=== PATIENT | female | born 1970 | race Caucasian/White ===

== ENCOUNTER 2023-06-24 21:24 | Emergency (ER) | payer MEDICARE, MEDICAID, SELFPAY ==
[2023-06-24 21:26] VITALS: BP 122/91; PULSE 108; RESP 18; TEMP 36.6; O2SAT 97; BMI 27.3
--- NOTE | 2023-06-24 21:57 | CTR_ITS ---
PROCEDURE INFORMATION: Exam: CTA Chest With Contrast Exam date and time: 06/24/2023 10:19 PM Age: 52 years old Clinical indication: Bloating; Abdominal pain; Generalized; Cough and shortness of breath; Other: N/a; Prior surgery; Surgery date: 6+ months; Surgery type: Tubal ligation; Patient HX: Cough with SOB and hypoxia. Abd pain with distention. ; Additional info: Tachycardia and shortness of breath/abd pain TECHNIQUE: Imaging protocol: Computed tomographic angiography of the chest with contrast. Exam focused on the arteries. 3D rendering (Not supervised by radiologist): MIP and/or 3D reconstructed images were created by the technologist. Radiation optimization: All CT scans at this facility use at least one of these dose optimization techniques: automated exposure control; mA and/or kV adjustment per patient size (includes targeted exams where dose is matched to clinical indication); or iterative reconstruction. Contrast material: OMNI 350; Contrast volume: 100 ml; Contrast route: INTRAVENOUS (IV); REPORTING DATA: Count of CT and Cardiac NM exams in prior 12 months: This patient has received 0 known CTs and 0 known cardiac nuclear medicine studies in the 12 months prior to the current study. COMPARISON: No relevant prior studies available. RADIATION DOSE METRICS: Total DLP (mGy-cm): 1046.27 FINDINGS: Pulmonary arteries: Normal. No pulmonary emboli. Aorta: There are calcifications of the aortic root. There are atherosclerotic calcifications of the coronary arteries. There are atherosclerotic calcifications of the aortic arch and the origin of the arch vessels. There are atherosclerotic calcifications of the descending thoracic aorta. Lungs: Diffuse emphysema throughout both lungs. Dependent opacities in the lower lobes and lingula, likely atelectasis. There is a 4 mm nodule in the right lower lobe, (series 4, image 40). Another 3-4 mm nodule in the right middle lobe, (series 4, image 45). 5 mm nodule in the left lower lobe, (series 4, image 45). A larger nodular opacity in the lingula measuring approximally 1.3 by 1.0 cm, (series 7, image 352). No consolidation. Pleural spaces: Unremarkable. No pneumothorax. No pleural effusion. Heart: There is a 4.4 x 3.6 x 5.2 cm fat density lesion adjacent to the right anterior aspect of the left atrium, and posterior and lateral to the right atrium, compatible with epicardial lipoma. The mass, mildly compresses the right anterolateral aspect of the left atrium. No cardiomegaly. No pericardial effusion. Lymph nodes: Small and borderline prominent mediastinal lymph nodes are nonspecific. For reference, there is a 1.2 cm right hilar lymph node, (series 7, image 227). Bones/joints: Mild degenerative changes of the thoracic spine. Old, healing right lateral 6th rib fracture with callus formation. No acute fracture. Soft tissues: Unremarkable. COMMENTS: In the absence of a history or active diagnosis of lung cancer, it is recommended that this patient with emphysema be evaluated for enrollment in a low dose CT lung cancer screening program. PROCEDURE INFORMATION: Exam: CT Abdomen And Pelvis With Contrast Exam date and time: 06/24/2023 10:19 PM Age: 52 years old Clinical indication: Bloating; Abdominal pain; Generalized; Cough and shortness of breath; Other: N/a; Prior surgery; Surgery date: 6+ months; Surgery type: Tubal ligation; Patient HX: Cough with SOB and hypoxia. Abd pain with distention. ; Additional info: Tachycardia and shortness of breath/abd pain TECHNIQUE: Imaging protocol: Computed tomography of the abdomen and pelvis with contrast. Radiation optimization: All CT scans at this facility use at least one of these dose optimization techniques: automated exposure control; mA and/or kV adjustment per patient size (includes targeted exams where dose is matched to clinical indication); or iterative reconstruction. Contrast material: OMNI 350; Contrast volume: 100 ml; Contrast route: INTRAVENOUS (IV); REPORTING DATA: Count of CT and Cardiac NM exams in prior 12 months: This patient has received 0 known CTs and 0 known cardiac nuclear medicine studies in the 12 months prior to the current study. COMPARISON: No relevant prior studies available. RADIATION DOSE METRICS: Total DLP (mGy-cm): 1046.27 FINDINGS: Liver: Fatty steatosis is noted. Granulomatous calcifications are noted in the liver. No mass. Gallbladder and bile ducts: Normal. No calcified stones. No ductal dilation. Pancreas: Normal. No ductal dilation. Spleen: Granulomatous calcifications are seen in the spleen. No splenomegaly. Adrenal glands: Normal. No mass. Kidneys and ureters: Normal. No hydronephrosis. Stomach and bowel: Mild wall thickening of the duodenum and the proximal jejunal loops. No obstruction. No mucosal thickening. Appendix: No evidence of appendicitis. Intraperitoneal space: Unremarkable. No free air. No significant fluid collection. Vasculature: There are atherosclerotic calcifications of the abdominal aorta and its branches. There are atherosclerotic calcifications of the abdominal aorta and its branches. Lymph nodes: Unremarkable. No enlarged lymph nodes. Urinary bladder: Unremarkable as visualized. Reproductive: Unremarkable as visualized. Bones/joints: Mild degenerative changes of the SI joints. Soft tissues: Unremarkable. CT/CT angio chest w abd pel w con IMPRESSION: 1. 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 2. Coronary atherosclerosis. 3. Vascular atherosclerosis. 4. Thoracic lymphadenopathy. 5. Multiple pulmonary nodules. Follow-up CT of the chest within 3 months is recommended according to Fleischner criteria. 6. Old, healing right lateral 6th rib fracture with callus formation IMPRESSION: 1. Mild fatty steatosis of the liver. 2. Granulomatous calcifications of the liver and spleen. 3. Atherosclerotic calcifications of the abdominal aorta and its branches. 4. Mild wall thickening of the duodenum and the proximal jejunal loops. Findings are nonspecific however can be seen with duodenojejunitis, in the appropriate clinical setting. 5. Otherwise, no evidence of acute findings in the abdominal pelvis.
--- NOTE | 2023-06-24 21:58 | ECG_ITS ---
[facility] Test Date: 2023-06-24 Pat Name: Mary Jo Martinez Department: Room: Gender: Female [employer] Technician: : 1970 Requested By: Kirk Cruz Order Number: [id number] Bea MD: Kemal Gusman M.D. Measurements Intervals Onyx Rate: 106 P: 88 IN: 148 QRS: 63 QRSD: 88 T: 2 QT: 348 QTc: 463 Interpretive Statements SINUS TACHYCARDIA POSSIBLE LEFT ATRIAL ENLARGEMENT [-0.1mV P-WAVE IN V1/V2] NONSPECIFIC ST & T-WAVE ABNORMALITY ABNORMAL RHYTHM ECG No previous ECG available for comparison Electronically Signed On 06-25-2023 11:29:36 CDT by Kemal Gusman M.D. [id number]
--- NOTE | 2023-06-24 22:01 | W.ED.SOB ---
HPI - SOB/Dyspnea General: Chief Complaint: Shortness of Breath/Dyspnea Stated Complaint: ABD PAIN Time Seen by Provider: 06/24/23 21:28 History of Present Illness: HPI Narrative: Patient is a 52-year-old female that presents to the emergency department with complaints of chest tightness, shortness of breath and abdominal pain. Patient has a long convoluted story. She states she has had worsening shortness of breath for 2 years. She has undergone CT chest imaging in the last 6 months which shows concern for multiple very large pulmonary nodules. It is unclear if patient has followed up this. She expresses lots of frustration with her providers and is transitioning to an new provider Patient's complaint right now?chest tightness, shortness of breath, abdominal pain with distention She has a productive cough with purulent sputum Unsure if she has been running fevers She has a history of COPD/emphysema, cardiovascular disease. She is a poor historian. Associated symptoms: Reports abdominal pain, chest congestion, chest pain, nausea, orthopnea and palpitations; Deny dizziness, extremity pain, fever(s), polydipsia, polyuria or vomiting Review of Systems General: Reports: 10 or more systems reviewed and unremarkable except in HPI and below Const: Reports: change in weight, fatigue and malaise; Denies: fever(s), chills or change in appetite Eyes: Denies: change in vision, eye discomfort, eye discharge or eye redness ENMT: Reports: throat pain, hoarseness, nasal discharge, nasal congestion and post nasal drip; Denies: enlarged tonsils, odynophagia, ear or mastoid pain, ear discharge, change in hearing, tinnitus or sinus pain Card: Reports: chest pain, palpitations, dyspnea on exertion and orthopnea; Denies: irregular heart rhythm, edema or leg pain with exertion Resp: Reports: dyspnea, productive cough, change in phlegm color and chest congestion; Denies: non-productive cough, wheezing or stridor GI: Reports: abdominal pain, nausea, diarrhea, constipation, bloating and change in bowel habits; Denies: vomiting, dysphagia, GI cramping or hematochezia : Denies: flank pain, difficulty voiding, dysuria, urinary frequency, urinary urgency, urinary hesitancy, oliguria or hematuria Musc: Denies: neck pain, back pain, extremity pain, joint pain, joint swelling, joint redness, joint warmth or muscle weakness Skin/Breast: Denies: rash, pruritus, erythema, photosensitivity or new lesions Neuro: Denies: headache(s), numbness in extremities, weakness in extremities, sensory changes, lack of coordination, difficulty walking, frequent falls, dizziness, confusion, Slurred speech present, difficulty communicating thoughts, seizure-like activity or involuntary movements Endo: Denies: polyuria, polydipsia or tired all the time Last/Lymph: Denies: easy bruising or easy bleeding PFSH ED PFSH: Medical History History of benign cardiac tumor History of chronic obstructive pulmonary disease Social History Smoking and tobacco status: current every day smoker Physical Exam Const: COMMON NORMALS: no acute distress, patient oriented x3 and alert GENERAL APPEARANCE: cooperative ORIENTATION/CONSCIOUSNESS: Yes awake, Yes oriented to person, Yes oriented to place and Yes oriented to time HENMT: COMMON NORMALS: normocephalic and atraumatic HEAD & SCALP: normocephalic and atraumatic FACE & SINUS: normal facial exam MOUTH: Normal oral and palatal mucosa present THROAT: posterior oropharynx normal Eye: COMMON NORMALS: Equal, round and reactive pupils present, EOMs intact bilaterally, conjunctivae normal and no scleral icterus GENERAL EYE: appearance normal, both eyes and all related structures ALIGNMENT: Yes alignment normal PERIORBITAL: periorbital findings normal CONJUNCTIVA: Yes conjunctivae normal PUPIL: Yes Equal, round and reactive pupils present Neck/C-Spine: COMMON NORMALS: full ROM GENERAL: Yes normal visual inspection Lymph: LYMPHATIC: no lymphadenopathy noted Chest: COMMONS NORMALS: normal inspection of the chest Breast/axilla inspection: Yes no chest deformity, asymmetry, normal contours, no nodules, masses, tenderness Resp: COMMON NORMALS: normal respiratory effort, No retractions, No use of accessory muscles and clear to auscultation bilaterally EFFORT & INSPECTION: Yes able to speak in complete sentences and Yes symmetric chest movement AUSCULTATION: clear to auscultation bilaterally Cardio: COMMON NORMALS: regular rate, regular rhythm and Peripheral pulses 2+ throughout RATE: regular rate RHYTHM: regular rhythm PERIPHERAL PULSES: Peripheral pulses 2+ throughout GI: COMMON NORMALS: Normal to inspection, nondistended, normoactive bowel sounds present, Soft to palpation, non-tender and No hepatosplenomegaly present INSPECTION: Yes normal to inspection AUSCULTATION: Yes normoactive bowel sounds PALPATION: Yes Soft to palpation and Yes No hepatosplenomegaly present RECTAL EXAM: deferred Extremity: COMMON NORMALS: normal to inspection GENERAL: Yes normal exam except as noted Neuro: COMMON NORMALS: patient oriented x3 SENSORIUM/ORIENTATION: Yes alert, Yes oriented to person, Yes oriented to place and Yes oriented to time CRANIAL NERVES: Yes CN normal except as noted Psych: COMMON NORMALS: mental status grossly normal, Normal thought process present, cooperative, activity/motor behavior normal, denies homicidal ideation and denies suicidal ideation THOUGHT PROCESS: Normal thought process present Skin: COMMON NORMALS: no rashes or lesions noted, no wounds and turgor normal GENERAL SKIN EXAM: no rashes or lesions noted and turgor normal Course Vital Signs: Vital signs: Vital Signs Temperature 98 F 06/24/23 21:26 Pulse Rate 108 H 06/24/23 21:26 Respiratory Rate 18 06/24/23 21:26 Blood Pressure 122/91 06/24/23 21:26 Pulse Oximetry 97 06/24/23 21:26 MDM - SOB/Dyspnea Medical Decision Making Patient was evaluated in the emergency department for multiple complaints today. He underwent multiple diagnostics that included CT chest abdomen pelvis with contrast EKG Troponin series D-dimer CBC, CMP lactic acid Urinalysis, urine drug screen The differentials for this lady were numerous due to her numerous complaints. Differential diagnoses included AMI, heart disease, unstable angina, PE, abdominal distention, acute abdomen, peritonitis, redness Laboratory studies reveal mild leukocytosis with atelectasis noted on the CT of the chest. She has evidence of ENT?sinus infection. Leukocytosis could be from a COPD exacerbation brought on by a sinus infection Remainder of her labs are largely remarkable. The CT of her chest abdomen pelvis with contrast did reveal widespread coronary vascular atherosclerosis with thoracic lymphadenopathy and multiple pulmonary nodules. The abdomen revealed a fatty liver, calcifications of the liver and spleen, atherosclerosis calcification of the abdominal aorta and its branches. There was mild wall thickening of the duodenum and the proximal jejunal loops. She probably needs to see a smog technician. Delayed the patient has colonoscopy scheduled next week. Patient is good to be treated with Augmentin for sinus affection and COPD exacerbation Also going to give her steroids for COPD exacerbation. Patient is to return to an emergency department for new, concerning, worsening symptoms Lab Data 06/24/23 22:14 06/24/23 22:14 Labs/Radiology: Radiology Impressions Chest/Abdomen/Pelvis CT 06/24/23 21:57 IMPRESSION: 1. 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 2. Coronary atherosclerosis. 3. Vascular atherosclerosis. 4. Thoracic lymphadenopathy. 5. Multiple pulmonary nodules. Follow-up CT of the chest within 3 months is recommended according to Fleischner criteria. 6. Old, healing right lateral 6th rib fracture with callus formation IMPRESSION: 1. Mild fatty steatosis of the liver. 2. Granulomatous calcifications of the liver and spleen. 3. Atherosclerotic calcifications of the abdominal aorta and its branches. 4. Mild wall thickening of the duodenum and the proximal jejunal loops. Findings are nonspecific however can be seen with duodenojejunitis, in the appropriate clinical setting. 5. Otherwise, no evidence of acute findings in the abdominal pelvis. Laboratory Results WBC 11.5 10^3/uL (4.0-10.0) H 06/24/23 22:14 RBC 5.40 10^6/uL (4.1-5.3) H 06/24/23 22:14 Hgb 15.7 g/dL (11.5-15.3) H 06/24/23 22:14 Hct 47.5 % (37.0-47.0) H 06/24/23 22:14 MCV 88.0 fl (81-99) 06/24/23 22:14 MCH 29.1 pg (28.0-34.0) 06/24/23 22:14 MCHC 33.1 g/dL (30.0-36.0) 06/24/23 22:14 RDW 13.7 % (12.1-15.1) 06/24/23 22:14 Plt Count 357 10^3/cmm (130-400) 06/24/23 22:14 MPV 9.9 fL (7.4-10.4) 06/24/23 22:14 Neut % (Auto) 61.3 % 06/24/23 22:14 Lymph % (Auto) 31.0 % 06/24/23 22:14 [place] % (Auto) 6.4 % 06/24/23 22:14 Eos % (Auto) 0.3 % 06/24/23 22:14 Baso % (Auto) 0.7 % 06/24/23 22:14 Neut # (Auto) 7.03 10^3/uL (1.8-7.7) 06/24/23 22:14 Lymph # (Auto) 3.6 10^3/uL (0.8-4.8) 06/24/23 22:14 [place] # (Auto) 0.7 10^3/uL (0.2-0.9) 06/24/23 22:14 Eos # (Auto) 0.0 10^3/uL (0.0-0.8) 06/24/23 22:14 Baso # (Auto) 0.1 10^3/uL (0.0-0.1) 06/24/23 22:14 Nucleated RBC % (auto) 0 % 06/24/23 22:14 Nucleated RBCs # 0.0 /100WBC 06/24/23 22:14 D-Dimer 0.44 ug/mIFEU (0-0.59) 06/24/23 22:14 Sodium 139 mmol/L (136-145) 06/24/23 22:14 Potassium 3.8 mmol/L (3.5-5.1) 06/24/23 22:14 Chloride 100 mmol/L (98-107) 06/24/23 22:14 Carbon Dioxide 25 mmol/L (22-29) 06/24/23 22:14 Anion Gap 17.8 (5-19) 06/24/23 22:14 BUN 11 mg/dL (6-20) 06/24/23 22:14 Creatinine 0.8 mg/dL (0.5-0.9) 06/24/23 22:14 GFR Calculation 75.0 mL/min (90-130) L 06/24/23 22:14 Glucose 115 mg/dL (65-115) 06/24/23 22:14 Calculated Osmolality 288 mOsm/kg (285-295) 06/24/23 22:14 Lactic Acid 1.3 mmol/L (0.5-2.2) 06/24/23 22:14 Calcium 9.3 mg/dL (8.5-10.5) 06/24/23 22:14 Total Bilirubin 0.3 mg/dL (0.15-1.2) 06/24/23 22:14 AST 13 U/L (0-32) 06/24/23 22:14 ALT 12 U/L (0-33) 06/24/23 22:14 Alkaline Phosphatase 81 U/L (35-105) 06/24/23 22:14 Troponin T Baseline 6 ng/L (0-10) 06/24/23 22:14 NT-Pro-B Natriuret Pep 84 pg/mL (0-125) 06/24/23 22:14 Total Protein 7.7 g/dL (6.6-8.7) 06/24/23 22:14 Albumin 4.1 g/dL (3.5-5.2) 06/24/23 22:14 Globulin 3.6 g/dL (1.3-4.6) 06/24/23 22:14 Urine Color Straw (Yellow) 06/24/23 23:03 Urine Appearance Clear (CLEAR) 06/24/23 23:03 Urine pH 5 (5-7) 06/24/23 23:03 Ur Specific [place] 1.010 (1.005-1.030) 06/24/23 23:03 Urine Protein Neg (Negative) 06/24/23 23:03 Urine Glucose (UA) Norm (Normal) 06/24/23 23:03 Urine Ketones Negative (Negative) 06/24/23 23:03 Urine Blood Trace (Negative) H 06/24/23 23:03 Urine Nitrate Negative (Negative) 06/24/23 23:03 Urine Bilirubin Neg (Negative) 06/24/23 23:03 Urine Urobilinogen Norm mg/dL (Negative) 06/24/23 23:03 Ur Leukocyte Esterase Negative (Negative) 06/24/23 23:03 Urine RBC 0-4 /hpf (0-2) H 06/24/23 23:03 Urine WBC 0-4 /hpf (0-5) H 06/24/23 23:03 Ur Squamous Epith Cells 0-4 /hpf (0-5) H 06/24/23 23:03 Amorphous Sediment Not Reportable 06/24/23 23:03 Urine Bacteria Trace /hpf (NONE) 06/24/23 23:03 Urine Mucus Trace /hpf 06/24/23 23:03 Urine Opiates Screen Negative ng/mL (Negative) 06/24/23 23:03 Ur Barbiturates Screen Negative ng/mL (Negative) 06/24/23 23:03 Ur Phencyclidine Scrn Negative ng/mL (Negative) 06/24/23 23:03 Ur Amphetamines Screen Negative ng/mL (Negative) 06/24/23 23:03 U Benzodiazepines Scrn Negative ng/mL (Negative) 06/24/23 23:03 Urine Cocaine Screen Negative ng/mL (Negative) 06/24/23 23:03 U Marijuana (THC) Screen Negative ng/mL (Negative) 06/24/23 23:03 Discharge Plan Discharge Patient Disposition: Home Clinical Impression: Acute exacerbation of chronic obstructive airways disease, Chronic infection of sinus Condition: Stable Prescriptions: New amoxicillin-pot clavulanate 875-125 mg tablet 1 tab PO BID 7 Days Qty: 14 0RF fluticasone propionate 50 mcg/actuation spray,suspension 1 spray intranasal DAILY PRN (Reason: allergy symptoms and nasal congestion) Qty: 16 0RF Rx Instructions: administer into each nostril dextromethorphan-guaifenesin [Mucinex DM] 60-1,200 mg tablet extended release 12 hr 1 tab PO BID PRN (Reason: Chest congestion) 7 Days Qty: 14 0RF Rx Instructions: Drink plenty of water while taking this medication No Action tizanidine 4 mg capsule 4 mg PO BID PRN Discharge Orders: Discharge ED (Routine); Ordered 06/24/23 Ordered By: Kirk Barnes Referrals: Parul Lee COUNTER POCKET TRIMMER [Primary Care Provider] - Discharge Diet: Advance as tolerated Discharge Activity: Resume usual activity Patient Instructions: How to Stop Smoking (ED), COPD (Chronic Obstructive Pulmonary Disease) (ED), Pain Management, Sinusitis - Chronic Activity Restrictions/Additional Instructions: Please take medications as prescribed Please follow-up with your primary doctor this week Please keep your appointment for colonoscopy. This will be a good opportunity to discuss the recent findings on the CT Coding Level of Care Code ED Bowling Or Skating Front Desk Clerk for Sam Estrella
[2023-06-24] MEDS: iohexol 350 mg/mL 500 mL Btl (per mL) IV (22:20)
[2023-06-24 22:27] LABS: Basophils # 0.1 10^3/uL (0.0-0.1); Basophils % 0.7 %; Eosinophils % 0.3 %; Hematocrit 47.5 % (37.0-47.0); Hemoglobin 15.7 g/dL (11.5-15.3); Lymphocytes # 3.6 10^3/uL (0.8-4.8); Mean Corpuscular HGB Conc 33.1 g/dL (30.0-36.0); Mean Corpuscular Hemoglobin 29.1 pg (28.0-34.0); Mean Platelet Volume 9.9 fL (7.4-10.4); Monocytes # 0.7 10^3/uL (0.2-0.9); Monocytes % 6.4 %; Neutrophils # 7.03 10^3/uL (1.8-7.7); Neutrophils % 61.3 %; Nucleated Red Blood Cells % 0 %; Platelet Count 357 10^3/cmm (130-400); Red Cell Distribution Width 13.7 % (12.1-15.1); White Blood Count 11.5 10^3/uL (4.0-10.0)
[2023-06-24 22:42] LABS: D Dimer 0.44 ug/mIFEU (0-0.59)
[2023-06-24 22:44] LABS: Lactic Sepsis W/Reflex 1.3 mmol/L (0.5-2.2)
[2023-06-24 22:46] LABS: Troponin(5th) Baseline 6 ng/L (0-10)
[2023-06-24 22:55] LABS: Alanine Aminotransferase 12 U/L (0-33); Albumin Level 4.1 g/dL (3.5-5.2); Alkaline Phosphatase 81 U/L (35-105); Anion Gap 17.8 (5-19); Aspartate Amino Transferase 13 U/L (0-32); Blood Urea Nitrogen 11 mg/dL (6-20); Calcium 9.3 mg/dL (8.5-10.5); Carbon Dioxide 25 mmol/L (22-29); Chloride 100 mmol/L (98-107); Globulin 3.6 g/dL (1.3-4.6); Glucose 115 mg/dL (65-115); NT Pro B Type Natriuretic Pept 84 pg/mL (0-125); Osmolality Calculated 288 mOsm/kg (285-295); Potassium 3.8 mmol/L (3.5-5.1); Sodium 139 mmol/L (136-145); Total Bilirubin 0.3 mg/dL (0.15-1.2); Total Protein 7.7 g/dL (6.6-8.7)
[2023-06-24 23:22] LABS: Amphetamines Screen Urine Negative (Negative); Barbiturates Screen Urine Negative (Negative); Benzodiazepines Screen Urine Negative (Negative); Cocaine Screen Urine Negative (Negative); PCP Screen Urine Negative (Negative); THC Screen Urine Negative (Negative)
[2023-06-24 23:32] LABS: Add Urine Microscopic? YES; Bilirubin Urine Neg (Negative); Blood Urine Trace (Negative); Glucose Urine UA Norm (Normal); Ketones Urine Negative (Negative); Leukocyte Esterase Urine Negative (Negative); Nitrate Urine Negative (Negative); Protein Urine Neg (Negative); Urine Appearance Clear (CLEAR); Urine Color Straw (Yellow); Urobilinogen Urine Norm (Negative); pH Urine 5 (5-7)
[2023-06-24 23:33] LABS: Bacteria Urine TRACE /hpf; Mucus Urine TRACE /hpf; RBC Urine 0-4 /hpf (0-2); Squamous Epithelial Cell Urine 0-4 /hpf (0-5); WBC Urine 0-4 /hpf (0-5)
[2023-06-24 23:34] LABS: Add Urine Culture? No
[2023-06-24 23:39] LABS: Opiate Screen Urine Negative (Negative)
[2023-06-24] MEDS: amoxicillin-clav 875-125 mg Tablet 1 TAB PO (23:59)
[2023-06-25] MEDS: methylPREDNISolone sod succ 125 MG in water for injection-sterile 2 ML 24 MG IVP
[2023-06-25 00:18] VITALS: BP 128/76; O2SAT 98
== END 2023-06-25 00:19 | disposition home or self-care (01) ==
PROVIDERS: Emergency Provider Nurse Practitioner; PCP Nurse Practitioner Family
DX: J44.9 Chronic obstructive pulmonary disease, unspecified (principal); J32.9 Chronic sinusitis, unspecified; D72.829 Elevated white blood cell count, unspecified; J98.11 Atelectasis; I25.10 Atherosclerotic heart disease of native coronary artery without angina pectoris; R59.1 Generalized enlarged lymph nodes; R91.8 Other nonspecific abnormal finding of lung field; K76.0 Fatty (change of) liver, not elsewhere classified; D73.89 Other diseases of spleen
CPT/HCPCS: 71275; 74177; 80053; 80306; 81001; 83605; 83880; 84484; 85025; 85378; 93005; 96374; 99285; J2930; Q9967

== ENCOUNTER 2023-10-28 07:26 | Emergency (ER) | payer MEDICARE, MEDICAID, SELFPAY ==
[2023-10-28 07:28] VITALS: BP 150/101; PULSE 88; RESP 12; TEMP 36.6; O2SAT 94; BMI 27.3
[2023-10-28 07:35] VITALS: BP 150/101; O2SAT 93
--- NOTE | 2023-10-28 07:35 | W.ED.NECK ---
HPI - Neck Pain/Injury General: Chief Complaint: Neck Pain/Injury Stated Complaint: NECK PAIN Time Seen by Provider: 10/28/23 07:29 Source: EMS Mode of arrival: EMS Limitations: no limitations History of Present Illness: 53-year-old female states she has been having neck pain over the last 4 to 5 days states the burning pain in her neck and shoulders. He states that she has a bone scan set up next week with her PCP in [facility]. States the pain is burning in nature rates it a 6 out of 10 she denies any weakness denies any severe headache Associated symptoms: Denies headache(s) or nausea Review of Systems Const: Denies: fever(s), chills, body aches or change in appetite Eyes: Denies: blurry vision or eye discomfort ENMT: Denies: throat pain or dental pain Card: Denies: chest pain Resp: Denies: dyspnea GI: Denies: abdominal pain, nausea, vomiting or diarrhea Musc: Reports: neck pain; Denies: back pain Skin/Breast: Denies: rash Neuro: Denies: headache(s) PFSH ED PFSH: Medical History History of benign cardiac tumor History of chronic obstructive pulmonary disease Social History Smoking and tobacco/nicotine status: current every day tobacco/nicotine user Physical Exam Const: COMMON NORMALS: no acute distress, patient oriented x3 and healthy appearing HENMT: COMMON NORMALS: normocephalic and atraumatic HEAD & SCALP: normocephalic and atraumatic Eye: COMMON NORMALS: Equal, round and reactive pupils present and EOMs intact bilaterally PUPIL: Yes Equal, round and reactive pupils present Neck/C-Spine: OTHER: Tenderness to bilateral neck no midline tenderness Chest: COMMONS NORMALS: normal inspection of the chest and normal palpation of entire chest wall Resp: COMMON NORMALS: normal respiratory effort, No retractions, No use of accessory muscles and clear to auscultation bilaterally AUSCULTATION: clear to auscultation bilaterally Cardio: COMMON NORMALS: regular rate, regular rhythm and No murmurs present (Cardio) RATE: regular rate RHYTHM: regular rhythm Extremity: COMMON NORMALS: normal to inspection and full ROM Neuro: COMMON NORMALS: patient oriented x3, moves all extremities and no focal motor deficits Psych: COMMON NORMALS: mental status grossly normal, Normal thought process present and cooperative THOUGHT PROCESS: Normal thought process present Skin: COMMON NORMALS: no rashes or lesions noted and no wounds GENERAL SKIN EXAM: no rashes or lesions noted Course Vital Signs: Vital signs: Vital Signs Temperature 97.8 F 10/28/23 07:28 Pulse Rate 88 10/28/23 07:28 Respiratory Rate 12 10/28/23 07:28 Blood Pressure 150/101 10/28/23 07:28 Pulse Oximetry 94 10/28/23 07:28 Oxygen Delivery Me thod Room Air 10/28/23 07:28 MDM - Neck Pain/Injury Medical Decision Making Patient presents here with neck pain likely muscular in nature. She has a bone scan scheduled next week with Bubba she is well-appearing here no sign of cord impingement or meningitis we will prescribe her pain meds she is to follow-up with PCP as scheduled and return if worsening. Medical Records I reviewed the patient's medical records. No radiology studies performed this visit Discharge Plan Discharge Patient Disposition: Home Clinical Impression: Neck pain Condition: Stable Prescriptions: New hydrocodone-acetaminophen 5-325 mg tablet 1 tab PO Q6H PRN (Reason: pain) Qty: 14 0RF No Action tizanidine 4 mg capsule 4 mg PO BID PRN fluticasone propionate 50 mcg/actuation spray,suspension 1 spray intranasal DAILY PRN (Reason: allergy symptoms and nasal congestion) Qty: 16 0RF Rx Instructions: administer into each nostril Discharge Orders: Discharge ED (Routine); Ordered 10/28/23 Ordered By: Andree Chu Referrals: Parul Lee NP [Primary Care Provider] - 1-3 days Discharge Diet: Advance as tolerated Discharge Activity: Resume usual activity Patient Instructions: Neck Pain (ED), Opioid Safety Coding Level of Care Code ED Restaurant Assistant Manager for Sam Estrella
[2023-10-28 07:54] VITALS: RESP 18; O2SAT 95
[2023-10-28] MEDS: morphine 4 mg/mL SDV 1 mL IM (07:54)
[2023-10-28] MEDS: dexamethasone 10 mg/mL INJ IM (07:54)
== END 2023-10-28 08:48 | disposition home or self-care (01) ==
PROVIDERS: Emergency Provider Emergency Medicine; PCP Nurse Practitioner Family
DX: M54.2 Cervicalgia (principal); J44.9 Chronic obstructive pulmonary disease, unspecified; Z72.0 Tobacco use
CPT/HCPCS: 96372; 99284; J1100; J2270

== ENCOUNTER 2023-11-10 10:42 | Emergency (ER) | payer MEDICARE, MEDICAID, SELFPAY ==
[2023-11-10 10:44] VITALS: BP 131/80; PULSE 113; RESP 18; TEMP 37.1; O2SAT 90; BMI 19.8
[2023-11-10 11:21] LABS: Basophils % 0.2 %; Hematocrit 49.9 % (36-47); Lymphocytes # 1.3 10^3/uL (0.8-4.8); Lymphocytes % 6.7 %; Mean Corpuscular HGB Conc 33.9 g/dL (30-55); Mean Corpuscular Volume 88.6 fl (85-98); Mean Platelet Volume 9.7 fL (7.4-10.4); Monocytes % 5.1 %; Neutrophils # 16.78 10^3/uL (1.8-7.7); Neutrophils % 87.6 %; Nucleated Red Blood Cells % 0 %; Platelet Count 218 10^3/cmm (157-399); Red Blood Count 5.63 10^6/uL (3.85-5.65); Red Cell Distribution Width 14.8 % (12.1-15.1); White Blood Count 19.15 10^3/uL (3.29-11.43)
[2023-11-10 11:33] LABS: INR 0.99 (0.8-1.2)
[2023-11-10 11:40] LABS: Alanine Aminotransferase 17 U/L (0-33); Albumin Level 3.6 g/dL (3.5-5.2); Alkaline Phosphatase 75 U/L (35-105); Anion Gap 16.2 (5-19); Aspartate Amino Transferase 23 U/L (0-32); Blood Urea Nitrogen 15 mg/dL (6-20); Calcium 9.1 mg/dL (8.5-10.5); Carbon Dioxide 24 mmol/L (22-29); Chloride 100 mmol/L (98-107); Globulin 3.3 g/dL (1.3-4.6); Glomerular Filtration Rate 87.2 mL/min (90-130); Glucose 171 mg/dL (65-115); Osmolality Calculated 287 mOsm/kg (285-295); Potassium 4.2 mmol/L (3.5-5.1); Sodium 136 mmol/L (136-145); Total Bilirubin 0.5 mg/dL (0.15-1.2); Total Protein 6.9 g/dL (6.6-8.7)
[2023-11-10] MEDS: sodium chloride 0.9% 1,000 ML 999 ML IV (11:44)
[2023-11-10 11:50] VITALS: BP 126/90; O2SAT 91
[2023-11-10 12:00] VITALS: BP 136/92; PULSE 90; RESP 16; O2SAT 90
--- NOTE | 2023-11-10 12:22 | CTR_ITS ---
PROCEDURE INFORMATION: Exam: CT Abdomen And Pelvis With Contrast Exam date and time: 11/10/2023 12:38 PM Age: 53 years old Clinical indication: Abdominal pain; Generalized; Prior surgery; Surgery date: 6+ months; Surgery type: Tubal; Additional info: Abd pain, lower gi bleed TECHNIQUE: Imaging protocol: Computed tomography of the abdomen and pelvis with contrast. Radiation optimization: All CT scans at this facility use at least one of these dose optimization techniques: automated exposure control; mA and/or kV adjustment per patient size (includes targeted exams where dose is matched to clinical indication); or iterative reconstruction. Contrast material: OMNI 350; Contrast volume: 100 ml; Contrast route: INTRAVENOUS (IV); REPORTING DATA: Count of CT and Cardiac NM exams in prior 12 months: This patient has received [address] and 0 known cardiac nuclear medicine studies in the 12 months prior to the current study. COMPARISON: CT angio chest w abd pel w con 06/24/2023 10:19 PM RADIATION DOSE METRICS: Total DLP (mGy-cm): 647.9 FINDINGS: Liver: Normal. No mass. Gallbladder and bile ducts: Normal. No calcified stones. No ductal dilation. Pancreas: Normal. No ductal dilation. Spleen: The spleen demonstrates a few small granulomatous calcifications. Adrenal glands: Normal. No mass. Kidneys and ureters: Normal. No hydronephrosis. Stomach and bowel: See Intraperitoneal space finding. Appendix: The vermiform appendix is normal. Intraperitoneal space: Right anterior subdiaphragmatic colonic interposition is present, a normal variant. Vasculature: Moderate aortic atherosclerotic calcification without aneurysm. The iliac arteries show moderate bilateral atherosclerotic calcifications without evidence of aneurysm. Left pelvic calcified phleboliths. Lymph nodes: No enlarged lymph nodes. Urinary bladder: Unremarkable as visualized. Reproductive: Unremarkable as visualized. Bones/joints: Stable T11 vertebral body, left iliac bone, left femoral head and right femoral neck probable benign bone islands. Soft tissues: A tiny paraumbilical hernia containing only abdominal fat is noted. CT/CT abdomen pelvis w con* [id number] IMPRESSION: 1. No acute abdominal or pelvic abnormality identified. 2. No site or cause of gastrointestinal bleeding identified. 3. Please see the CT chest report of the same date for additional findings.
--- NOTE | 2023-11-10 12:42 | ED_ITS ---
Documented by User: Paulino Howe DO 11/10/23 13:44 HPI - GI Bleed 2 General: Chief complaint: GI Bleed Stated complaint: rectal bleeding Time Seen by Provider: 11/10/23 10:49 History of Present Illness: Patient presents to the ER with complaints of distended abdomen that has been hard for months. She states she had multiple bloody bowel movements this morning and blood in her pull-ups. Patient says she is been worked up for this multiple times and multiple CTs in the past and nobody finds anything ever. Review of Systems 2 General: Reports: 10 or more systems reviewed and unremarkable except in HPI and below PFSH ED 2 PFSH: Medical History History of benign cardiac tumor History of chronic obstructive pulmonary disease Social History Smoking and tobacco/nicotine status: current every day tobacco/nicotine user Physical Exam 2 Const: COMMON NORMALS: no acute distress, average body habitus, patient oriented x3, no limitations, healthy appearing, alert and well nourished HENMT: COMMON NORMALS: normocephalic, atraumatic, hearing grossly normal bilaterally, external ears normal, Normal external nose present, moist oral mucous membranes and oropharynx normal HEAD & SCALP: normocephalic and atraumatic NOSE: Normal external nose present EXTERNAL EAR: Yes external ears normal Neck/C-Spine: COMMON NORMALS: no JVD Chest: COMMONS NORMALS: normal inspection of the chest and normal palpation of entire chest wall Resp: COMMON NORMALS: normal respiratory effort, No retractions, No use of accessory muscles and clear to auscultation bilaterally AUSCULTATION: clear to auscultation bilaterally Cardio: COMMON NORMALS: no JVD, regular rate, regular rhythm, S1 normal heart sound present, S2 normal heart sound present, No gallops present (Cardio), No clicks present (Cardio), No murmurs present (Cardio), No rub (Cardio) and Peripheral pulses 2+ throughout RATE: regular rate RHYTHM: regular rhythm HEART SOUNDS: S1 normal heart sound present and S2 normal heart sound present PERIPHERAL PULSES: Peripheral pulses 2+ throughout GI: COMMON NORMALS: Normal to inspection, nondistended, normoactive bowel sounds present, Soft to palpation, non-tender, No hepatosplenomegaly present and no masses PALPATION: Yes Soft to palpation and Yes No hepatosplenomegaly present Neuro: COMMON NORMALS: patient oriented x3 SENSORIUM/ORIENTATION: Yes alert Course 2 Vital Signs: Vital signs: Vital Signs Temperature 98.8 F 11/10/23 14:07 Pulse Rate 115 H 11/10/23 14:07 Respiratory Rate 14 11/10/23 14:07 Blood Pressure 131/90 11/10/23 14:07 Pulse Oximetry 91 11/10/23 14:07 Oxygen Delivery Me thod Room Air 11/10/23 13:30 Oxygen Flow Rate 1 11/10/23 11:50 MDM - GI Bleed Medical Decision Making Lab work done that revealed an elevated white count of 19.1, UA showed probable urinary tract infection. CT scan of abdomen pelvis with contrast showed no acute abdominal or pelvic abnormality. Patient be placed on ciprofloxacin and discharged home. Patient was given 1 L normal saline in ER. As well as 500 mg Cipro orally. Patient should follow-up with her PCP within the next 7 to 10 days for further evaluation and treatment. Differential Diagnosis Likely Lower gastrointestinal hemorrhage and hematochezia; Unlikely hemorrhoids, infectious diarrhea, esophageal varices, gastritis, Ashley-Bah syndrome, Upper gastrointestinal hemorrhage, melena or anal fissure Lab Data I reviewed the patient's lab results. 11/10/23 11:06 11/10/23 11:06 Radiology Impressions Abdomen/Pelvis CT 11/10/23 12:22 IMPRESSION: 1. No acute abdominal or pelvic abnormality identified. 2. No site or cause of gastrointestinal bleeding identified. 3. Please see the CT chest report of the same date for additional findings. ADDENDUM: 11/11/23 0841 Images reviewed. Thrombus within the superior mesenteric artery. Area of low attenuation within the right kidney inferiorly and peripherally consistent with a renal infarct. These findings were discussed with Dr. Pino at approximately 9:[address] Radha Soto Laboratory Results WBC 19.15 10^3/uL (3.29-11.43) H 11/10/23 11:06 RBC 5.63 10^6/uL (3.85-5.65) 11/10/23 11:06 Hgb 16.90 g/dL (11.27-16.99) 11/10/23 11:06 Hct 49.9 % (36-47) H 11/10/23 11:06 MCV 88.6 fl (85-98) 11/10/23 11:06 MCH 30.0 pg (27-33) 11/10/23 11:06 MCHC 33.9 g/dL (30-55) 11/10/23 11:06 RDW 14.8 % (12.1-15.1) 11/10/23 11:06 Plt Count 218 10^3/cmm (157-399) 11/10/23 11:06 MPV 9.7 fL (7.4-10.4) 11/10/23 11:06 Neut % (Auto) 87.6 % 11/10/23 11:06 Lymph % (Auto) 6.7 % 11/10/23 11:06 Upson % (Auto) 5.1 % 11/10/23 11:06 Eos % (Auto) 0.0 % 11/10/23 11:06 Baso % (Auto) 0.2 % 11/10/23 11:06 Neut # (Auto) 16.78 10^3/uL (1.8-7.7) H 11/10/23 11:06 Lymph # (Auto) 1.3 10^3/uL (0.8-4.8) 11/10/23 11:06 Upson # (Auto) 1.0 10^3/uL (0.2-0.9) H 11/10/23 11:06 Eos # (Auto) 0.0 10^3/uL (0.0-0.8) 11/10/23 11:06 Baso # (Auto) 0.0 10^3/uL (0.0-0.1) 11/10/23 11:06 Nucleated RBC % (auto) 0 % 11/10/23 11:06 Nucleated RBCs # 0.0 /100WBC 11/10/23 11:06 PT 13.40 SECONDS (12.1-14.9) 11/10/23 11:06 INR 0.99 (0.8-1.2) 11/10/23 11:06 Sodium 136 mmol/L (136-145) 11/10/23 11:06 Potassium 4.2 mmol/L (3.5-5.1) 11/10/23 11:06 Chloride 100 mmol/L (98-107) 11/10/23 11:06 Carbon Dioxide 24 mmol/L (22-29) 11/10/23 11:06 Anion Gap 16.2 (5-19) 11/10/23 11:06 BUN 15 mg/dL (6-20) 11/10/23 11:06 Creatinine 0.7 mg/dL (0.5-0.9) 11/10/23 11:06 GFR Calculation 87.2 mL/min (90-130) L 11/10/23 11:06 Glucose 171 mg/dL (65-115) H 11/10/23 11:06 Calculated Osmolality 287 mOsm/kg (285-295) 11/10/23 11:06 Calcium 9.1 mg/dL (8.5-10.5) 11/10/23 11:06 Total Bilirubin 0.5 mg/dL (0.15-1.2) 11/10/23 11:06 AST 23 U/L (0-32) 11/10/23 11:06 ALT 17 U/L (0-33) 11/10/23 11:06 Alkaline Phosphatase 75 U/L (35-105) 11/10/23 11:06 Total Protein 6.9 g/dL (6.6-8.7) 11/10/23 11:06 Albumin 3.6 g/dL (3.5-5.2) 11/10/23 11:06 Globulin 3.3 g/dL (1.3-4.6) 11/10/23 11:06 Urine Color Yellow (Yellow) 11/10/23 13:00 Urine Appearance Hazy (CLEAR) A 11/10/23 13:00 Urine pH 5 (5-7) 11/10/23 13:00 Ur Specific [place] 1.010 (1.005-1.030) 11/10/23 13:00 Urine Protein 1+ (Negative) H 11/10/23 13:00 Urine Glucose (UA) Norm (Normal) 11/10/23 13:00 Urine Ketones Negative (Negative) 11/10/23 13:00 Urine Blood 3+ (Negative) H 11/10/23 13:00 Urine Nitrate Negative (Negative) 11/10/23 13:00 Urine Bilirubin 1+ (Negative) H 11/10/23 13:00 Urine Urobilinogen Norm mg/dL (Negative) 11/10/23 13:00 Ur Leukocyte Esterase 2+ (Negative) H 11/10/23 13:00 Urine RBC 5-10 /hpf (0-2) H 11/10/23 13:00 Urine WBC 25-40 /hpf (0-5) H 11/10/23 13:00 Ur Squamous Epith Cells 10-15 /hpf (0-5) H 11/10/23 13:00 Amorphous Sediment Not Reportable 11/10/23 13:00 Urine Bacteria 2+ /hpf (NONE) H 11/10/23 13:00 Urine Opiates Screen Negative ng/mL (Negative) 11/10/23 13:00 Ur Barbiturates Screen Negative ng/mL (Negative) 11/10/23 13:00 Ur Phencyclidine Scrn Negative ng/mL (Negative) 11/10/23 13:00 Ur Amphetamines Screen Negative ng/mL (Negative) 11/10/23 13:00 U Benzodiazepines Scrn Negative ng/mL (Negative) 11/10/23 13:00 Urine Cocaine Screen Negative ng/mL (Negative) 11/10/23 13:00 U Marijuana (THC) Screen Negative ng/mL (Negative) 11/10/23 13:00 All radiology interpretation(s) finalized by discharge Discharge Plan Discharge Patient Disposition: Home Clinical Impression: Hematochezia Urinary tract infection Qualifiers: Urinary tract infection type: acute cystitis Hematuria presence: with hematuria Qualified Code(s): N30.01 - Acute cystitis with hematuria Condition: Stable Prescriptions: New ciprofloxacin HCl 500 mg tablet 500 mg PO Q12H Qty: 14 0RF No Action tizanidine 4 mg capsule 4 mg PO BID PRN (Reason: Muscle Spasm) buspirone 5 mg tablet 5 mg PO TID doxycycline hyclate 100 mg capsule 100 mg PO BID albuterol sulfate 2.5 mg /3 mL (0.083 %) solution for nebulization 2.5 mg continuous nebulization TID PRN (Reason: Shortness Of Breath Or Wheezing) albuterol sulfate 90 mcg/actuation HFA aerosol inhaler 2 inh INHALATION QID PRN (Reason: Shortness Of Breath) duloxetine 60 mg capsule,delayed release(DR/EC) 60 mg PO DAILY Daliresp 250 mcg tablet 250 mcg PO DAILY Breztri Aerosphere 160-9-4.8 mcg/actuation HFA aerosol inhaler 2 inh INHALATION BID Discharge Orders: Discharge ED (Routine); Ordered 11/10/23 Ordered By: Paulino Howe Referrals: Parul Lee NP [Primary Care Provider] - 1 week Patient Instructions: Rectal Bleeding (ED), Urinary Tract Infection in Women (DC) Activity Restrictions/Additional Instructions: Please take all antibiotics as directed. Please push fluids. Please follow-up with your family practice physician for further evaluation and treatment as you may benefit from referral to GI doctor and/or colonoscopy. If your symptoms worsen please return to the ER or if you get lightheaded dizzy feeling to get a pass out please return to the ER. Coding Level of Care Code ED Diamond Saw Operator for Chg Fwd Documented by User: Felice Pino DO 11/11/23 09:20 HPI - GI Bleed 2 General: Chief complaint: GI Bleed Stated complaint: rectal bleeding Time Seen by Provider: 11/10/23 10:49 [facility] ED 2 PFSH: Medical History History of benign cardiac tumor History of chronic obstructive pulmonary disease Social History Smoking and tobacco/nicotine status: current every day tobacco/nicotine user Course 2 Vital Signs: Vital signs: Vital Signs Temperature 98.8 F 11/10/23 14:07 Pulse Rate 115 H 11/10/23 14:07 Respiratory Rate 14 11/10/23 14:07 Blood Pressure 131/90 11/10/23 14:07 Pulse Oximetry 91 11/10/23 14:07 Oxygen Delivery Me thod Room Air 11/10/23 13:30 Oxygen Flow Rate 1 11/10/23 11:50 MDM - GI Bleed Medical Decision Making Lab work done that revealed an elevated white count of 19.1, UA showed probable urinary tract infection. CT scan of abdomen pelvis with contrast showed no acute abdominal or pelvic abnormality. Patient be placed on ciprofloxacin and discharged home. Patient was given 1 L normal saline in ER. As well as 500 mg Cipro orally. Patient should follow-up with her PCP within the next 7 to 10 days for further evaluation and treatment. 11/11/2023 8:30 AM On QA review by virtual radiology services there was findings identified that were not reported in the original CT abdomen pelvis to Dr. Howe. Their medical office professional instructor contacted as they are making a change in the report. 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 These findings were not present on previous CT done in June and are new findings. These positive findings were not reported to Dr. Howe at the time he seen the patient. I asked the staff to contact the patient they were able to contact the patient and encouraged her to return either here or to a another emergency room which ever is closest. She initially declined to be seen. I asked the staff to call him back again reiterated to her that these are potentially critical findings and its imperative that she be reevaluated either at our facility or at another facility. Patient declined again to be seen. She did call back sometime later and advised the nursing staff that she would be going to [facility] in [place]. We had told her earlier that we would send the CT results to wherever she would be going to to ensure there was appropriate follow-through on these findings. Staff is clouding the images to [facility] in [place] where the patient stated she will be going. Also asked him to contact the ER and advise them that there are available images for her from 11/11/2023. Lab Data 11/10/23 11:06 11/10/23 11:06 Radiology Impressions Abdomen/Pelvis CT 11/10/23 12:22 IMPRESSION: 1. No acute abdominal or pelvic abnormality identified. 2. No site or cause of gastrointestinal bleeding identified. 3. Please see the CT chest report of the same date for additional findings. ADDENDUM: 11/11/23 0841 Images reviewed. Thrombus within the superior mesenteric artery. Area of low attenuation within the right kidney inferiorly and peripherally consistent with a renal infarct. These findings were discussed with Dr. Pino at approximately 9:[address] Radha Soto Laboratory Results WBC 19.15 10^3/uL (3.29-11.43) H 11/10/23 11:06 RBC 5.63 10^6/uL (3.85-5.65) 11/10/23 11:06 Hgb 16.90 g/dL (11.27-16.99) 11/10/23 11:06 Hct 49.9 % (36-47) H 11/10/23 11:06 MCV 88.6 fl (85-98) 11/10/23 11:06 MCH 30.0 pg (27-33) 11/10/23 11:06 MCHC 33.9 g/dL (30-55) 11/10/23 11:06 RDW 14.8 % (12.1-15.1) 11/10/23 11:06 Plt Count 218 10^3/cmm (157-399) 11/10/23 11:06 MPV 9.7 fL (7.4-10.4) 11/10/23 11:06 Neut % (Auto) 87.6 % 11/10/23 11:06 Lymph % (Auto) 6.7 % 11/10/23 11:06 Upson % (Auto) 5.1 % 11/10/23 11:06 Eos % (Auto) 0.0 % 11/10/23 11:06 Baso % (Auto) 0.2 % 11/10/23 11:06 Neut # (Auto) 16.78 10^3/uL (1.8-7.7) H 11/10/23 11:06 Lymph # (Auto) 1.3 10^3/uL (0.8-4.8) 11/10/23 11:06 Upson # (Auto) 1.0 10^3/uL (0.2-0.9) H 11/10/23 11:06 Eos # (Auto) 0.0 10^3/uL (0.0-0.8) 11/10/23 11:06 Baso # (Auto) 0.0 10^3/uL (0.0-0.1) 11/10/23 11:06 Nucleated RBC % (auto) 0 % 11/10/23 11:06 Nucleated RBCs # 0.0 /100WBC 11/10/23 11:06 PT 13.40 SECONDS (12.1-14.9) 11/10/23 11:06 INR 0.99 (0.8-1.2) 11/10/23 11:06 Sodium 136 mmol/L (136-145) 11/10/23 11:06 Potassium 4.2 mmol/L (3.5-5.1) 11/10/23 11:06 Chloride 100 mmol/L (98-107) 11/10/23 11:06 Carbon Dioxide 24 mmol/L (22-29) 11/10/23 11:06 Anion Gap 16.2 (5-19) 11/10/23 11:06 BUN 15 mg/dL (6-20) 11/10/23 11:06 Creatinine 0.7 mg/dL (0.5-0.9) 11/10/23 11:06 GFR Calculation 87.2 mL/min (90-130) L 11/10/23 11:06 Glucose 171 mg/dL (65-115) H 11/10/23 11:06 Calculated Osmolality 287 mOsm/kg (285-295) 11/10/23 11:06 Calcium 9.1 mg/dL (8.5-10.5) 11/10/23 11:06 Total Bilirubin 0.5 mg/dL (0.15-1.2) 11/10/23 11:06 AST 23 U/L (0-32) 11/10/23 11:06 ALT 17 U/L (0-33) 11/10/23 11:06 Alkaline Phosphatase 75 U/L (35-105) 11/10/23 11:06 Total Protein 6.9 g/dL (6.6-8.7) 11/10/23 11:06 Albumin 3.6 g/dL (3.5-5.2) 11/10/23 11:06 Globulin 3.3 g/dL (1.3-4.6) 11/10/23 11:06 Urine Color Yellow (Yellow) 11/10/23 13:00 Urine Appearance Hazy (CLEAR) A 11/10/23 13:00 Urine pH 5 (5-7) 11/10/23 13:00 Ur Specific [place] 1.010 (1.005-1.030) 11/10/23 13:00 Urine Protein 1+ (Negative) H 11/10/23 13:00 Urine Glucose (UA) Norm (Normal) 11/10/23 13:00 Urine Ketones Negative (Negative) 11/10/23 13:00 Urine Blood 3+ (Negative) H 11/10/23 13:00 Urine Nitrate Negative (Negative) 11/10/23 13:00 Urine Bilirubin 1+ (Negative) H 11/10/23 13:00 Urine Urobilinogen Norm mg/dL (Negative) 11/10/23 13:00 Ur Leukocyte Esterase 2+ (Negative) H 11/10/23 13:00 Urine RBC 5-10 /hpf (0-2) H 11/10/23 13:00 Urine WBC 25-40 /hpf (0-5) H 11/10/23 13:00 Ur Squamous Epith Cells 10-15 /hpf (0-5) H 11/10/23 13:00 Amorphous Sediment Not Reportable 11/10/23 13:00 Urine Bacteria 2+ /hpf (NONE) H 11/10/23 13:00 Urine Opiates Screen Negative ng/mL (Negative) 11/10/23 13:00 Ur Barbiturates Screen Negative ng/mL (Negative) 11/10/23 13:00 Ur Phencyclidine Scrn Negative ng/mL (Negative) 11/10/23 13:00 Ur Amphetamines Screen Negative ng/mL (Negative) 11/10/23 13:00 U Benzodiazepines Scrn Negative ng/mL (Negative) 11/10/23 13:00 Urine Cocaine Screen Negative ng/mL (Negative) 11/10/23 13:00 U Marijuana (THC) Screen Negative ng/mL (Negative) 11/10/23 13:00 Discharge Plan Discharge Patient Disposition: Home Clinical Impression: Hematochezia Urinary tract infection Qualifiers: Urinary tract infection type: acute cystitis Hematuria presence: with hematuria Qualified Code(s): N30.01 - Acute cystitis with hematuria Condition: Stable Prescriptions: New ciprofloxacin HCl 500 mg tablet 500 mg PO Q12H Qty: 14 0RF No Action tizanidine 4 mg capsule 4 mg PO BID PRN (Reason: Muscle Spasm) buspirone 5 mg tablet 5 mg PO TID doxycycline hyclate 100 mg capsule 100 mg PO BID albuterol sulfate 2.5 mg /3 mL (0.083 %) solution for nebulization 2.5 mg continuous nebulization TID PRN (Reason: Shortness Of Breath Or Wheezing) albuterol sulfate 90 mcg/actuation HFA aerosol inhaler 2 inh INHALATION QID PRN (Reason: Shortness Of Breath) duloxetine 60 mg capsule,delayed release(DR/EC) 60 mg PO DAILY Daliresp 250 mcg tablet 250 mcg PO DAILY Cielotri Aerosphere 160-9-4.8 mcg/actuation HFA aerosol inhaler 2 inh INHALATION BID Discharge Orders: Discharge ED (Routine); Ordered 11/10/23 Ordered By: Paulino Howe Referrals: Parul Lee NP [Primary Care Provider] - 1 week Patient Instructions: Rectal Bleeding (ED), Urinary Tract Infection in Women (DC) Activity Restrictions/Additional Instructions: Please take all antibiotics as directed. Please push fluids. Please follow-up with your family practice physician for further evaluation and treatment as you may benefit from referral to GI doctor and/or colonoscopy. If your symptoms worsen please return to the ER or if you get lightheaded dizzy feeling to get a pass out please return to the ER. Coding Level of Care Code ED Diamond Saw Operator for Sam Estrella
[2023-11-10] MEDS: iohexol 350 mg/mL 500 mL Btl (per mL) IV (12:44)
[2023-11-10 13:00] VITALS: O2SAT 95
[2023-11-10 13:30] VITALS: BP 131/90; PULSE 115; RESP 14; O2SAT 91
[2023-11-10 13:37] LABS: Bilirubin Urine 1+ (Negative); Blood Urine 3+ (Negative); Glucose Urine UA Norm (Normal); Ketones Urine Negative (Negative); Nitrate Urine Negative (Negative); Protein Urine 1+ (Negative); Urine Appearance Hazy (CLEAR); Urine Color Yellow (Yellow); Urobilinogen Urine Norm (Negative); pH Urine 5 (5-7)
[2023-11-10 13:38] LABS: Add Urine Culture? No; Add Urine Microscopic? YES; Bacteria Urine 2+ /hpf; Leukocyte Esterase Urine 2+ (Negative); WBC Urine 25-40 /hpf (0-5)
[2023-11-10 13:40] LABS: Amphetamines Screen Urine Negative (Negative); Barbiturates Screen Urine Negative (Negative); Benzodiazepines Screen Urine Negative (Negative); Cocaine Screen Urine Negative (Negative); Opiate Screen Urine Negative (Negative); PCP Screen Urine Negative (Negative); THC Screen Urine Negative (Negative)
[2023-11-10] MEDS: ondansetron 2 mg/ML SDV 2 mL 4 MG IVP (13:54)
[2023-11-10] MEDS: ciprofloxacin 500 mg Tablet PO (13:56)
[2023-11-10 14:07] VITALS: BP 131/90; PULSE 115; RESP 14; TEMP 37.1; O2SAT 91
--- NOTE | 2023-11-11 08:59 | PC.NURSE ---
spoke to pt on phone per md request for critical finding on ct. pt stated she was going to seek medical attention at another facility.
== END 2023-11-10 14:09 | disposition home or self-care (01) ==
PROVIDERS: Emergency Provider Emergency Medicine; PCP Nurse Practitioner Family
DX: K92.1 Melena (principal); N30.01 Acute cystitis with hematuria; J44.9 Chronic obstructive pulmonary disease, unspecified; Z72.0 Tobacco use
CPT/HCPCS: 36415; 74177; 80053; 80306; 81001; 85025; 85610; 96361; 96374; 99285; J2405; J7030; Q9967